=== PATIENT | female | born 1960 | race Caucasian/White ===

== ENCOUNTER 2018-03-06 11:20 | Observation (INO) | payer OTHER ==
[~2018-03-06] VITALS: Ht 162.6 cm; Wt 64.0 kg
[~2018-03-06 11:20] MED LIST: AMITRIPTYLINE H50 MG PO; BUPROPION PO; CIPRO250 MG PO; DEXILANT; DICYCLOMINE HCL20 MG PO; DIPHENOXYLATE-1 EACH PO; DOESNT KNOW MEDS; ETODOLAC; FLUOXETINE HCL20 MG PO; FLUOXETINE HCL40 MG PO; FUROSEMIDE20 MG PO; GABAPENTIN100 MG PO; HYDROCODON-ACE1 EAC9 PO; IMITREX; LIPOFEN; METOCLOPRAMIDE H5 MG PO; METRONIDAZOLE500 MG PO; NORCO; NORTRIPTYLINE; ONDANSETRON HCL4 MG PO; OPANA10 MG PO; PRISTIQ; PROAIR; PROTONIX40 MG/ML PO; SEROQUEL XR150 MG PO; SERTRALINE; SINGULAIR; SUMATRIPTAN SU100 MG PO; TIZANIDINE PO; ZOLPIDEM PO
[2018-03-06] MEDS ORDERED: IPRATROPIUM BROMIDE 0.02% 2.5 ML NEB NEB STA (11:24)
[2018-03-06] MEDS ORDERED: ALBUTEROL SULF 0.083% NEB SOLN 3 ML NEB NEB STA (11:24)
--- NOTE | 2018-03-06 12:45 | Diagnostic Imaging Report ---
EXAMINATION: CHEST 2 VIEWS INDICATION: Shortness of breath. COMPARISON: None FINDINGS: PA and lateral views TUBES and LINES: None. LUNGS: Lungs are well inflated. Lungs are clear. There is no evidence of pneumonia or pulmonary edema. PLEURA: No pleural effusion or pneumothorax. HEART AND MEDIASTINUM: The cardiomediastinal silhouette is unremarkable. BONES AND SOFT TISSUES: No acute osseous lesion. Soft tissues are unremarkable. UPPER ABDOMEN: No free air under the diaphragm. There are cholecystectomy clips. IMPRESSION: No acute thoracic abnormality. Signed by: Dr. Rodolfo Watkins M.D. on 03/06/2018 12:41 PM
[2018-03-06 13:58] LABS: BASOPHILS # (AUTO) 0.1 (0.0-0.1); BASOPHILS % 0.6 % (0.0-1.0); EOSINOPHILS # (AUTO) 0.1 (0.0-0.4); EOSINOPHILS % 0.8 % (0.0-6.0); HEMATOCRIT 44.7 % (34.2-44.1); HEMOGLOBIN 14.5 g/dL (12.0-16.0); LYMPHOCYTES # (AUTO) 3.4 (1.0-3.2); LYMPHOCYTES % 19.6 % (18.0-39.1); MEAN CORPUSCULAR HEMOGLOBIN 30.7 pg (28-32); MEAN CORPUSCULAR HGB CONC 32.4 g/dL (31-35); MEAN CORPUSCULAR VOLUME 94.7 fL (81-99); MONOCYTES % 5.6 % (4.4-11.3); NEUTROPHILS # (AUTO) 12.5 (2.1-6.9); PLATELET COUNT 329 x10e3/uL (140-360); RED BLOOD COUNT 4.72 x10e6/uL (3.6-5.1)
[2018-03-06 14:17] LABS: AMPHETAMINES SCREEN,URINE NEGATIVE (NEGATIVE); BENZODIAZEPINES SCREEN,URINE NEGATIVE (NEGATIVE); PHENCYCLIDINE SCREEN,URINE NEGATIVE (NEGATIVE)
[2018-03-06 14:26] LABS: ALANINE AMINOTRANSFERASE 18 IU/L (0-55); ALBUMIN/GLOBULIN RATIO 1.2 (0.8-2.0); ALKALINE PHOSPHATASE 78 IU/L (40-150); ANION GAP 15.3 mmol/L (8-16); BLOOD UREA NITROGEN 17 mg/dL (7-26); BUN/CREATININE RATIO 16 (6-25); CALCIUM 10.2 mg/dL (8.4-10.2); CARBON DIOXIDE 23 mmol/L (22-29); CHLORIDE 108 mmol/L (98-107); CREATINE KINASE 28 IU/L (29-168); CREATININE, SERUM 1.05 mg/dL (0.57-1.11); EST GLOMERULAR FILTRATION RATE 54 ML/MIN (60-); GLUCOSE 121 mg/dL (74-118); LIPASE 31 U/L (8-78); POTASSIUM 3.3 mmol/L (3.5-5.1); SODIUM 143 mmol/L (136-145)
[2018-03-06] MEDS ORDERED: LORAZEPAM INJ 2 MG/ML VIAL IV ONE (15:15)
[2018-03-06 15:25] LABS: CLARITY,URINE SL CLOUDY (CLEAR); COLOR,URINE YELLOW (YELLOW); LEUKOCYTE ESTERASE ,URINE NEGATIVE (NEGATIVE); NITRITE,URINE POSITIVE (NEGATIVE); PROTEIN,URINE DIPSTICK NEGATIVE (NEGATIVE)
[2018-03-06 15:26] LABS: BILIRUBIN,URINE NEGATIVE (NEGATIVE); KETONES,URINE NEGATIVE (NEGATIVE); URINE UROBILINOGEN 1 mg/dL (0.2 - 1)
[2018-03-06 15:29] LABS: BACTERIA,URINE MANY /HPF; EPITHELIAL CELLS,URINE FEW /LPF; WBC,URINE (MAN) 0-5 /HPF (0-5)
--- NOTE | 2018-03-06 15:56 | Diagnostic Imaging Report ---
History:Rule out bleed, AMS Comparison studies:None Technique: Axial images were obtained from the skull base to the vertex. Coronal and sagittal images reconstructed from the axial data. Intravenous contrast: None Dose modulation, iterative reconstruction, and/or weight based adjustment of the mA/kV was utilized to reduce the radiation dose to as low as reasonably achievable. Findings: Scalp/skull: No abnormalities. Extra-axial spaces: No masses. No fluid collections. Brain sulci: Mildly prominent. Ventricles: Mild compensatory dilatation. No hydrocephalus. Parenchyma: Few hypodensities in the supratentorial white matter are small vessel ischemic changes. No masses, hemorrhage, acute or chronic cortical vascular insults. Sellar/suprasellar region: No abnormalities. Craniocervical junction: Patent foramen magnum. No Chiari one malformation. Incidental findings: Atherosclerotic calcifications in the carotid siphons . Impression: No acute abnormalities. Chronic findings: 1. Mild generalized volume loss. 2. Mild supratentorial white matter small vessel ischemic changes. Signed by: DR Diony Ridley M.D. on 03/06/2018 3:53 PM
[2018-03-06] MEDS ORDERED: CEFTRIAXONE SOD 1 GM VIAL IV ONE (16:45)
[2018-03-06 18:40] VITALS: BP 141/64
[2018-03-06] MEDS: SODIUM CHLORIDE 0.9% 1000ML 1,000 ML IV SCH (19:25)
[2018-03-06 20:00] VITALS: BP 146/65
[2018-03-06 20:39] VITALS: BP 141/64
[2018-03-06] MEDS ORDERED: HYDROCODONE/APAP 10MG-325MG TAB PO PRN (21:45)
[2018-03-06] MEDS: ZOLPIDEM TARTRATE 5 MG TAB PO PRN (22:35)
[2018-03-06 22:40] LABS: CREATINE KINASE 28 IU/L (29-168)
[2018-03-07] VITALS (7 sets, daily range): BP systolic 121–141; BP diastolic 55–82
[2018-03-07] MEDS: SODIUM CHLORIDE 0.9% 1000ML 1,000 ML IV SCH ×3 (03:53→21:23)
[2018-03-07] MEDS: ALBUTEROL/IPRATROPIUM 3 ML NEB NEB PRN ×2 (04:35→07:20)
[2018-03-07 05:52] LABS: BASOPHILS # (AUTO) 0.1 (0.0-0.1); BASOPHILS % 0.8 % (0.0-1.0); EOSINOPHILS # (AUTO) 0.8 (0.0-0.4); HEMATOCRIT 43.2 % (34.2-44.1); HEMOGLOBIN 14.2 g/dL (12.0-16.0); LYMPHOCYTES # (AUTO) 5.6 (1.0-3.2); LYMPHOCYTES % 35.5 % (18.0-39.1); MEAN CORPUSCULAR HEMOGLOBIN 31.1 pg (28-32); MEAN CORPUSCULAR HGB CONC 32.9 g/dL (31-35); MEAN CORPUSCULAR VOLUME 94.5 fL (81-99); MONOCYTES # (AUTO) 0.8 (0.2-0.8); MONOCYTES % 4.9 % (4.4-11.3); NEUTROPHILS # (AUTO) 8.4 (2.1-6.9); NEUTROPHILS % 53.5 % (38.7-80.0); PLATELET COUNT 421 x10e3/uL (140-360); RED BLOOD COUNT 4.57 x10e6/uL (3.6-5.1); RED CELL DISTRIBUTION WIDTH 13.2 % (11.7-14.4)
[2018-03-07 06:12] LABS: CREATINE KINASE 32 IU/L (29-168)
[2018-03-07 06:37] LABS: ALBUMIN 4.1 g/dL (3.5-5.0); ALBUMIN/GLOBULIN RATIO 1.1 (0.8-2.0); ANION GAP 20.1 mmol/L (8-16); CALCIUM 10.4 mg/dL (8.4-10.2); CREATININE, SERUM 1.12 mg/dL (0.57-1.11); POTASSIUM 3.1 mmol/L (3.5-5.1)
[2018-03-07 08:44] LABS: EOSINOPHILS % (MANUAL) 6 % (0-7); LYMPHOCYTES % (MANUAL) 34 % (19-48); MONOCYTES % (MANUAL) 6 % (3.4-9.0); NEUTROPHILS % (MANUAL) 51 % (40-74)
[2018-03-07 08:45] LABS: ANISOCYTOSIS SLIGHT; PLATELET ESTIMATE ADEQUATE; PLATELET MORPHOLOGY COMMENT NORMAL; RBC MORPHOLOGY COMMENT NORMAL
[2018-03-07] MEDS ORDERED: MIGRAINE RELIE1 EACH PO (13:24)
[2018-03-07] MEDS ORDERED: LIDOCAINE1 EA TD (13:24)
[2018-03-07] MEDS ORDERED: METHOCARBAMOL750 MG PO (13:35)
[2018-03-07] MEDS ORDERED: BELBUCA (13:35)
[2018-03-07] MEDS ORDERED: CELEBREX100 MG PO (13:35)
[2018-03-07] MEDS ORDERED: RANITIDINE HCL150 M1 (13:35)
[2018-03-07] MEDS ORDERED: TRICOR145 MG PO (13:35)
[2018-03-07] MEDS ORDERED: ZYRTEC10 M3 (13:35)
[2018-03-07] MEDS ORDERED: DIPHENHYDRAMINE25 M1 (13:35)
[2018-03-07] MEDS ORDERED: FLUTICASONE PRO16 GM (13:47)
[2018-03-07] MEDS ORDERED: QNASL8.7 GM IH (13:47)
[2018-03-07] MEDS ORDERED: BECLOMETHASONE D (13:47)
[2018-03-07] MEDS ORDERED: CEFTRIAXONE SOD 1 GM VIAL IV SCH (17:00)
[2018-03-07] MEDS ORDERED: AZITHROMYCIN 500MG/NS 250 ML 250 ML IV SCH (19:00)
[2018-03-07] MEDS ORDERED: LORATADINE 10 MG TAB PO SCH (19:00)
[2018-03-07] MEDS ORDERED: GUAIFENESIN/DEXTROMETHORPHAN LIQD 5 ML UDC NG PRN (19:00)
[2018-03-07] MEDS ORDERED: ALBUTEROL/IPRATROPIUM 3 ML NEB NEB PRN (19:00)
--- NOTE | 2018-03-07 19:38 | History and Physical ---
DATE OF SERVICE: 03/07/2018 at 8 a.m. PRIMARY CARE PHYSICIAN: Dr. Conteh CHIEF COMPLAINT: Shortness of breath. HISTORY OF PRESENT ILLNESS: This is a 57-year-old woman with a history of asthma, now developing shortness of breath. She took a nebulizer treatment at home; but due to worsening symptoms, she came to the hospital and received nebs here and is beginning to feel better. She denies any chest pain. Denies any dizziness, blurred vision or other symptoms. PAST MEDICAL HISTORY: Asthma, anxiety disorder, acute diverticulitis, urinary tract infection, chronic pain syndrome, Klebsiella pneumoniae urinary tract infection, fecal impaction. PAST SURGICAL HISTORY: Hip surgery times 2, hysterectomy. ALLERGIES: PER ELECTRONIC MEDICAL RECORD. FAMILY HISTORY/SOCIAL HISTORY: The patient is . She has 1 child. Occasional alcohol. No cigarettes or illicits. MEDICATIONS: Per electronic medical record. REVIEW OF SYSTEMS: Denies any dizziness, chest pain or vision changes. Denies any leg pain, back pain, nausea, vomiting, diarrhea, headache. PHYSICAL EXAMINATION VITAL SIGNS: Reviewed. GENERAL: A tired-appearing woman resting in bed. HEENT: Anicteric. Pupils are responsive to light. No oral lesions. CARDIOVASCULAR: Normal S1 and S2. Rapid heart rate. LUNGS: She has moderate breath sounds. Minimal wheezing. ABDOMEN: Soft, nontender, nondistended. EXTREMITIES: No edema or calf tenderness. NEUROLOGIC: Alert and oriented times 3, moving all extremities. SKIN: Dry. PSYCHIATRIC: Normal affect. LABS: Reviewed. MEDICATIONS: Reviewed. ASSESSMENT: This is a 57-year-old woman. 1. Acute asthma exacerbation. 2. Anxiety disorder. 3. Tachycardia. 4. Leukocytosis. 5. Hypokalemia. 6. Acute kidney injury. 7. Dehydration with hypercalcemia. 8. Gram-negative homero urinary tract infection. PLAN 1. Continue IV ceftriaxone. 2. Continue nebulization treatment. 3. Probably no need for steroids at this time. 4. Will add loratadine and Singulair. 5. Continue rehydration and reassess renal function. 6. Check potassium level later today. 7. Ambien for insomnia. 8. Lovenox and Pepcid for prophylaxis. 9. Monitor closely. Rehydrate and reassess potassium later today and reassess labs in the morning. Continue neb treatments. Consider low-dose steroids. Job#: [id number]
[2018-03-07] MEDS: ZOLPIDEM TARTRATE 5 MG TAB PO PRN (21:19)
[2018-03-07] MEDS: BENZONATATE 100 MG CAP PO SCH (21:23)
[2018-03-07] MEDS: FAMOTIDINE 20 MG TAB PO SCH (21:23)
[2018-03-07] MEDS: METHYLPREDNISOLONE SOD SUCC 40 MG/ML VIAL IV SCH (21:23)
[2018-03-07] MEDS: FLUTICASONE PROPIONATE NASAL SPRAY NS SCH (21:23)
[2018-03-08] MEDS ORDERED: METHOCARBAMOL 750 MG TAB PO SCH
[2018-03-08] MEDS: METHOCARBAMOL 500 MG TAB PO SCH ×3 (00:02→12:58)
[2018-03-08 01:00] VITALS: BP 150/67
[2018-03-08 04:00] VITALS: BP 162/92
[2018-03-08] MEDS: ALBUTEROL/IPRATROPIUM 3 ML NEB NEB PRN (05:55)
[2018-03-08 06:20] LABS: BASOPHILS % 0.3 % (0.0-1.0); HEMATOCRIT 41.6 % (34.2-44.1); HEMOGLOBIN 13.4 g/dL (12.0-16.0); LYMPHOCYTES # (AUTO) 1.5 (1.0-3.2); LYMPHOCYTES % 13.3 % (18.0-39.1); MEAN CORPUSCULAR HEMOGLOBIN 30.7 pg (28-32); MEAN CORPUSCULAR HGB CONC 32.2 g/dL (31-35); MEAN CORPUSCULAR VOLUME 95.4 fL (81-99); MONOCYTES # (AUTO) 0.2 (0.2-0.8); MONOCYTES % 1.8 % (4.4-11.3); NEUTROPHILS # (AUTO) 9.4 (2.1-6.9); PLATELET COUNT 349 x10e3/uL (140-360); RED BLOOD COUNT 4.36 x10e6/uL (3.6-5.1); RED CELL DISTRIBUTION WIDTH 13.1 % (11.7-14.4)
[2018-03-08 06:34] LABS: ANION GAP 13.9 mmol/L (8-16); CREATININE, SERUM 0.95 mg/dL (0.57-1.11); POTASSIUM 3.9 mmol/L (3.5-5.1)
[2018-03-08] MEDS ORDERED: LORAZEPAM INJ 2 MG/ML VIAL IV PRN (07:45)
[2018-03-08 08:37] VITALS: BP 129/59
[2018-03-08] MEDS ORDERED: NON-FORMULARY MEDICATION (Ranitidine Hcl 150 MG) PO SCH (09:00)
[2018-03-08] MEDS ORDERED: FENOFIBRATE 145 MG TAB PO SCH (09:00)
[2018-03-08] MEDS ORDERED: CETIRIZINE 10 MG PO SCH (09:00)
[2018-03-08 10:10] VITALS: BP 129/59
[2018-03-08] MEDS: FAMOTIDINE 20 MG TAB PO SCH (10:10)
[2018-03-08] MEDS: BENZONATATE 100 MG CAP PO SCH (10:10)
[2018-03-08] MEDS: FLUTICASONE PROPIONATE NASAL SPRAY NS SCH (10:10)
[2018-03-08] MEDS: METHYLPREDNISOLONE SOD SUCC 40 MG/ML VIAL IV SCH (10:10)
[2018-03-08 12:30] VITALS: BP 161/71
--- NOTE | 2018-03-08 16:53 | Discharge Summary ---
ADMITTING DIAGNOSES 1. Altered mental status. 2. Dyspnea. 3. Acute exacerbation of asthma. 4. Anxiety. 5. Hyperlipidemia. 6. Insomnia. 7. Urinary tract infection. DISCHARGE DIAGNOSES 1. Altered mental status. 2. Dyspnea. 3. Acute exacerbation of asthma. 4. Anxiety. 5. Hyperlipidemia. 6. Insomnia. 7. Urinary tract infection. 8. Thrombocytosis. HISTORY: The patient has a history of asthma, anxiety, acute diverticulitis, UTI, chronic pain, Klebsiella pneumoniae, fecal impaction. Surgical history of hysterectomy and hip surgery times 2. The patient denies alcohol, cigarette use and illicit drugs. HOSPITAL COURSE: This is a 57-year-old female with a history of asthma now developing shortness of breath. She took a nebulizer treatment at home, but the symptoms continued to get worse. She came to the hospital and got nebs and is feeling a little better already in the ER. She denies chest pain, dizziness, blurred vision or other symptoms. On admission, the patient was started on Rocephin and nebs as well as steroids, Singulair and Claritin. The patient was given IV fluids in the ER. The patient was feeling much better but says she still feels short of breath and thinks it might be related to anxiety, so I added some Ativan p.r.n. for the patient. She said she was happy to stay another day for IV antibiotic use. Later in the evening, the nurse called me and said the patient was acting erratically and throwing things in the hallway and said that she needed to go home for her son. The patient's was also at bedside and has packed the patient up. They have decided to leave against medical advice. The patient is aware that she accepts all responsibility of her healthcare when leaving AMA. Vital signs were stable. The patient was afebrile. At the time of AMA, the patient's sodium was 143, potassium 3.9, creatinine 0.95, BUN 12, WBC 11.24, platelets 349. The patient's urine culture was found to have E. coli, and blood cultures were negative. The patient left AMA without any prescription. She said she will follow up either at another hospital or with her primary care doctor. CT of the brain showed no acute abnormality. Chest x-ray showed no acute thoracic abnormality. Again, the patient and understand the risks and agree to leave AMA. Dictated by: Camila Luna, WASTE SALVAGER VALREIE DALTON MD Job#: [id number]
[2018-03-08] MEDS ORDERED: ENOXAPARIN SOD INJ 40 MG/0.4 ML SYR SC SCH (17:00)
== END 2018-03-08 15:04 | disposition left against medical advice (07) ==
LOC: ER 11:20 → ERHOLD 17:18 → MED/SURG 18:36
PROVIDERS: ADMIT Internal Medicine; ATTEND Internal Medicine
DX: N39.0 Urinary tract infection, site not specified (principal); R41.82 Altered mental status, unspecified; J45.901 Unspecified asthma with (acute) exacerbation; F41.9 Anxiety disorder, unspecified; R00.0 Tachycardia, unspecified; E87.6 Hypokalemia; N17.9 Acute kidney failure, unspecified; E86.0 Dehydration; E83.52 Hypercalcemia; G47.00 Insomnia, unspecified; B96.20 Unspecified Escherichia coli [E. coli] as the cause of diseases classified elsewhere; E78.5 Hyperlipidemia, unspecified; D47.3 Essential (hemorrhagic) thrombocythemia; Z88.1 Allergy status to other antibiotic agents; Z88.7 Allergy status to serum and vaccine; Z88.8 Allergy status to other drugs, medicaments and biological substances
CPT/HCPCS: 36415 ×3; 70450; 71046; 80048; 80053 ×2; 80307; 81001; 82550 ×2; 82553 ×2; 83605; 83690; 83880; 84132; 84443; 84484 ×2; 85025 ×3; 87040; 87086; 87186; 87400; 93005; 94640 ×2; 99284; G0378 ×3; J0456; J0696 ×2; J2060 ×2; J2920 ×2; J7030